=== PATIENT | female | born 2000 | race Caucasian/White ===

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

== ENCOUNTER 2018-08-16 13:07 | Emergency (ER) | payer OTHER ==
[2018-08-16] MEDS: IBUPROFEN 600 MG TAB PO (15:13)
== END 2018-08-16 16:13 | disposition home or self-care (01) ==
LOC: FTE 13:07
DX: S46.911A Strain of unspecified muscle, fascia and tendon at shoulder and upper arm level, right arm, initial encounter (principal); X50.0XXA Overexertion from strenuous movement or load, initial encounter; Y92.9 Unspecified place or not applicable
CPT/HCPCS: 73080; 73080-RT; 99283-25